=== PATIENT | female | born 1935 | race Caucasian/White ===

== ENCOUNTER 2016-08-11 15:43 | Inpatient (IN) | payer MEDICARE ==
[~2016-08-11] VITALS: Ht 157.5 cm; Wt 83.4 kg
[2016-08-11] VITALS (7 sets, daily range): BP systolic 117–133; BP diastolic 51–69
[~2016-08-11 15:43] MED LIST: ALBU25PO2 INH; ALBU8.5H3 INH; AMLO10TA2 PO; AMLO5TAB2 PO; ATEN25TA PO; ATOR10TA PO; BETA1TAB10 PO; BUDE10.22 INH; CLON-364 PO; ENOX40SY4 SQ; LEVO125T PO; LEVO500T33 PO; LOSA1TAB18 PO; LOSA25TA5 PO; MAGN400O4 PO; METF500T4 PO; METH750T87 PO; NAPR220T77 PO; OXYC-302 PO; PRAV40TA2 PO; SULF1TAB24 PO; TIOT18CA INH
[2016-08-11] MEDS ORDERED: SODIUM CHLORIDE FLUSH 10ML SYR IVF ONE (16:30)
[2016-08-11] MEDS ORDERED: SODIUM CHLORIDE 0.9% 1,000ML IVBOLUS ONE (16:30)
[2016-08-11] MEDS ORDERED: SULF1TAB24 PO (16:39)
[2016-08-11] MEDS ORDERED: ACET500T76 PO (16:40)
[2016-08-11] MEDS ORDERED: methylPREDNISolone SOD SUCC 125 MG/2 ML ONE (16:47)
[2016-08-11 16:49] LABS: ASPARTATE AMINO TRANSFERASE 14 U/L (15-37); BLOOD UREA NITROGEN 25 mg/dL (7-18)
[2016-08-11 16:54] LABS: IS PT STATUS REG ER OR PRE ER? YES
[2016-08-11] MEDS ORDERED: methylPREDNISolone SOD SUCC 125 MG/2 ML IVP ONE (17:00)
[2016-08-11] MEDS ORDERED: ALBUTEROL/IPRATROPIUM 2.5MG/0.5MG, 3 ML NPPB ONE (17:00)
[2016-08-11 17:15] LABS: ANISOCYTOSIS 1+
[2016-08-11 17:16] LABS: OVALOCYTES 1+; POLYCHROMASIA 1+
[2016-08-11 17:18] LABS: LARGE PLATELETS 1+
[2016-08-11] MEDS ORDERED: ALBUTEROL/IPRATROPIUM 2.5MG/0.5MG, 3 ML ONE (17:22)
[2016-08-11] MEDS ORDERED: SODIUM CHLORIDE FLUSH 10ML SYR IVF PRN (19:00)
[2016-08-11] MEDS ORDERED: TEMAZEPAM 15 MG CAPSULE PO PRN (19:30)
[2016-08-11] MEDS ORDERED: OXYcodone IR 5MG TABLET PO PRN (19:30)
[2016-08-11] MEDS ORDERED: FUROSEMIDE 20 MG/2 ML IV ONE (19:30)
[2016-08-11] MEDS ORDERED: GUAIFENESIN/DM 200-20MG, 10ML UDC PO PRN (19:30)
[2016-08-11] MEDS ORDERED: ENALAPRILAT 1.25 MG/ML, 2ML IVPush PRN (19:30)
[2016-08-11] MEDS ORDERED: ONDANSETRON 2MG/ML, 2ML IVPush PRN (19:30)
[2016-08-11] MEDS ORDERED: POLYETHYLENE GLYCOL 17 GM PACKET PO PRN (19:30)
[2016-08-11] MEDS ORDERED: ENOXAPARIN 40 MG/0.4 ML SQ SCH (19:30)
[2016-08-11] MEDS ORDERED: ENOXAPARIN 40 MG/0.4 ML ONE (19:33)
[2016-08-11] MEDS ORDERED: FUROSEMIDE 20 MG/2 ML ONE (19:33)
[2016-08-11] MEDS ORDERED: ATORVASTATIN 10 MG TABLET PO SCH (21:00)
[2016-08-11] MEDS ORDERED: LIPITOR MC SCH (22:30)
[2016-08-11] MEDS: ACETAMINOPHEN 325 MG TABLET PO PRN (22:52)
[2016-08-11] MEDS: SODIUM CHLORIDE FLUSH 3ML SYRINGE IVF SCH (23:07)
[2016-08-11] MEDS: TEMPLATE NON-FORMULARY MED. (Albuterol Sulfate (Proair Hfa) 2 PUFF) INH SCH (23:07)
[2016-08-12 00:53] VITALS: BP 117/58
[2016-08-12 01:53] VITALS: BP 112/58
[2016-08-12 01:59] VITALS: BP 112/58
[2016-08-12 05:00] LABS: PATH.CAST-FLAG NOT PRESENT; SPERM-FLAG NOT PRESENT; SRC-FLAG NOT PRESENT; XTAL-FLAG NOT PRESENT; YLC-FLAG NOT PRESENT
[2016-08-12 05:37] LABS: BLOOD UREA NITROGEN 26 mg/dL (7-18)
[2016-08-12 05:42] LABS: ASPARTATE AMINO TRANSFERASE 20 U/L (15-37)
[2016-08-12] MEDS: ALBUTEROL/IPRATROPIUM 2.5MG/0.5MG, 3 ML NPPB SCH ×4 (07:00→20:00)
[2016-08-12 08:00] VITALS: BP 118/54
[2016-08-12] MEDS: SULFAMETH./TRIMETHOPRIM DS 800MG/160MG TABLET PO SCH (08:56)
[2016-08-12] MEDS: ATENOLOL 25 MG TABLET PO SCH (08:56)
[2016-08-12] MEDS: HYDROCHLOROTHIAZIDE 12.5 MG CAPSULE PO SCH (08:56)
[2016-08-12] MEDS: LEVOTHYROXINE 125 MCG TABLET PO SCH (08:56)
[2016-08-12] MEDS: LOSARTAN 50MG TABLET PO SCH (08:57)
[2016-08-12] MEDS: SODIUM CHLORIDE FLUSH 3ML SYRINGE IVF SCH ×2 (08:57→21:00)
[2016-08-12] MEDS: SENNA/DOCUSATE TABLET PO SCH (08:59)
[2016-08-12] MEDS ORDERED: metFORMIN 500 MG TABLET PO SCH (09:00)
[2016-08-12] MEDS ORDERED: AMLODIPINE 5 MG TABLET PO SCH (09:00)
[2016-08-12] MEDS ORDERED: IPRATROPIUM 0.5 MG/2.5 ML INHA HHN SCH (09:00)
[2016-08-12 12:00] VITALS: BP 119/56
[2016-08-12] MEDS ORDERED: ALBUTEROL/IPRATROPIUM 2.5MG/0.5MG, 3 ML ONE (14:32)
[2016-08-12] MEDS: FUROSEMIDE 20 MG/2 ML IV SCH (17:52)
[2016-08-12] MEDS: TEMPLATE NON-FORMULARY MED. (Albuterol Sulfate (Proair Hfa) 2 PUFF) INH SCH (19:30)
[2016-08-12] MEDS: ENOXAPARIN 30 MG/0.3 ML SQ SCH (20:00)
[2016-08-12] MEDS ORDERED: ENOXAPARIN 30 MG/0.3 ML SQ SCH (20:00)
[2016-08-12] MEDS: ATORVASTATIN 20 MG TABLET PO SCH (21:34)
[2016-08-12] MEDS: ACETAMINOPHEN 325 MG TABLET PO PRN (21:37)
[2016-08-12 21:40] VITALS: BP 115/61
[2016-08-12 23:05] LABS: OCCBLD OBC PASS
[2016-08-13 00:30] VITALS: BP 110/65
[2016-08-13 04:10] VITALS: BP 121/68
[2016-08-13] MEDS: ACETAMINOPHEN 325 MG TABLET PO PRN ×4 (04:11→20:29)
[2016-08-13] MEDS: LEVOTHYROXINE 125 MCG TABLET PO SCH (05:09)
[2016-08-13 05:17] LABS: BLOOD UREA NITROGEN 35 mg/dL (7-18)
[2016-08-13 07:50] VITALS: BP 118/71
[2016-08-13] MEDS: ALBUTEROL/IPRATROPIUM 2.5MG/0.5MG, 3 ML NPPB SCH ×4 (08:00→19:25)
[2016-08-13] MEDS: SENNA/DOCUSATE TABLET PO SCH (09:00)
[2016-08-13] MEDS: SODIUM CHLORIDE FLUSH 3ML SYRINGE IVF SCH ×2 (09:00→20:23)
[2016-08-13] MEDS: POTASSIUM CHLORIDE 20 MEQ TAB.ER.PRT PO SCH (09:22)
[2016-08-13] MEDS: FUROSEMIDE 20 MG/2 ML IV SCH ×2 (09:22→20:22)
[2016-08-13] MEDS: LOSARTAN 50MG TABLET PO SCH (09:23)
[2016-08-13] MEDS: SULFAMETH./TRIMETHOPRIM DS 800MG/160MG TABLET PO SCH (09:23)
[2016-08-13] MEDS: HYDROCHLOROTHIAZIDE 12.5 MG CAPSULE PO SCH (09:23)
[2016-08-13] MEDS: ATENOLOL 25 MG TABLET PO SCH (09:24)
[2016-08-13 13:53] VITALS: BP 128/73
[2016-08-13] MEDS: TEMPLATE NON-FORMULARY MED. (Albuterol Sulfate (Proair Hfa) 2 PUFF) INH SCH (19:30)
[2016-08-13 19:41] VITALS: BP 112/62
[2016-08-13] MEDS: ATORVASTATIN 20 MG TABLET PO SCH (20:23)
[2016-08-13] MEDS: ENOXAPARIN 30 MG/0.3 ML SQ SCH (20:27)
[2016-08-13 23:47] VITALS: BP 118/66
[2016-08-14 00:46] VITALS: BP 118/60
[2016-08-14 04:22] VITALS: BP 111/58
[2016-08-14] MEDS: LEVOTHYROXINE 125 MCG TABLET PO SCH (05:22)
[2016-08-14 07:34] VITALS: BP 117/71
[2016-08-14] MEDS: FUROSEMIDE 20 MG/2 ML IV SCH (08:52)
[2016-08-14] MEDS: POTASSIUM CHLORIDE 20 MEQ TAB.ER.PRT PO SCH (08:53)
[2016-08-14] MEDS: SODIUM CHLORIDE FLUSH 3ML SYRINGE IVF SCH (08:53)
[2016-08-14] MEDS: SULFAMETH./TRIMETHOPRIM DS 800MG/160MG TABLET PO SCH (08:54)
[2016-08-14] MEDS: SENNA/DOCUSATE TABLET PO SCH (08:54)
[2016-08-14] MEDS: LOSARTAN 50MG TABLET PO SCH (08:55)
[2016-08-14] MEDS: HYDROCHLOROTHIAZIDE 12.5 MG CAPSULE PO SCH (08:56)
[2016-08-14] MEDS: ATENOLOL 25 MG TABLET PO SCH (08:56)
[2016-08-14] MEDS ORDERED: CIPR500T87 PO (09:27)
[2016-08-14] MEDS ORDERED: LACT1CAP24 PO (09:27)
[2016-08-14] MEDS ORDERED: POTA20PA PO (09:45)
[2016-08-14] MEDS ORDERED: FURO40TA6 PO (09:45)
[2016-08-14] MEDS ORDERED: FERR325T20 PO (09:45)
[2016-08-14] MEDS ORDERED: FERROUS SULFATE 325 MG TABLET PO SCH (10:00)
[2016-08-14] MEDS: ALBUTEROL/IPRATROPIUM 2.5MG/0.5MG, 3 ML NPPB SCH ×2 (10:20→14:50)
[2016-08-14 12:39] VITALS: BP 117/66
== END 2016-08-14 14:40 | disposition home or self-care (01) | DRG 291 ==
LOC: ED 18:30 → EDIP 18:39 → 4EST 21:46
PROVIDERS: ADMIT Internal Medicine; ATTEND Internal Medicine
PROC: 30233N1 Transfusion of Nonautologous Red Blood Cells into Peripheral Vein, Percutaneous Approach (ICD-10-PCS; principal; 2016-08-11)
DX: I13.0 Hypertensive heart and chronic kidney disease with heart failure and stage 1 through stage 4 chronic kidney disease, or unspecified chronic kidney disease (principal); I26.09 Other pulmonary embolism with acute cor pulmonale; J96.20 Acute and chronic respiratory failure, unspecified whether with hypoxia or hypercapnia; I50.31 Acute diastolic (congestive) heart failure; J44.1 Chronic obstructive pulmonary disease with (acute) exacerbation; N17.9 Acute kidney failure, unspecified; D50.9 Iron deficiency anemia, unspecified; E03.9 Hypothyroidism, unspecified; D63.1 Anemia in chronic kidney disease; E11.22 Type 2 diabetes mellitus with diabetic chronic kidney disease; E78.00 Pure hypercholesterolemia, unspecified; M54.9 Dorsalgia, unspecified; I08.3 Combined rheumatic disorders of mitral, aortic and tricuspid valves; G89.29 Other chronic pain; I27.2 Other secondary pulmonary hypertension; N18.3 Chronic kidney disease, stage 3 (moderate); Z82.49 Family history of ischemic heart disease and other diseases of the circulatory system; Z83.3 Family history of diabetes mellitus; Z87.81 Personal history of (healed) traumatic fracture; Z99.81 Dependence on supplemental oxygen; Z90.710 Acquired absence of both cervix and uterus; Z79.899 Other long term (current) drug therapy
CPT/HCPCS: 36415; 71010; 78582; 80048; 80053; 81001; 82272; 82607; 82728; 82746; 83540; 83550; 83880; 84443; 84484; 85025; 85379; 85610; 86850; 86900; 86923; 87077; 87086; 87186; 93005; 93306; 93970; 94640; 96361; 96372; 96374; 96375; J1650; J7620; A9540; A9558; C9898; J1940; J2930; J7030; J7512; P9016

== ENCOUNTER → 2016-10-24 | Outpatient (CLI) | payer MEDICARE ==
[~2016-10-24] MED LIST changes: +ACET500T71 PO; +CIPR500T87 PO; +FERR325T20 PO; +FURO40TA6 PO; +LACT1CAP24 PO; +POTA20PA PO; +REGADENOSON 0.4 MG/5 ML SYRINGE ONE
== END | disposition home or self-care (01) ==
LOC: CVU 07:02
PROVIDERS: ATTEND Internal Medicine Cardiovascular Disease
DX: I65.23 Occlusion and stenosis of bilateral carotid arteries (principal); I10 Essential (primary) hypertension; E11.9 Type 2 diabetes mellitus without complications
CPT/HCPCS: 78452; 93017; 93880; A9502; J2785

== ENCOUNTER 2017-07-09 11:24 | Inpatient (IN) | payer MEDICARE ==
[~2017-07-09] VITALS: Ht 157.5 cm; Wt 82.9 kg
[~2017-07-09 11:24] MED LIST changes: -ALBU8.5H3 INH; +ALBU8.5H8 INH; +FERR325T18 PO; -FERR325T20 PO; -LEVO500T33 PO; +LEVO500T47 PO; -LOSA1TAB18 PO; +LOSA1TAB25 PO; -MAGN400O4 PO; +MAGN400O7 PO; -REGADENOSON 0.4 MG/5 ML SYRINGE ONE
[2017-07-09] MEDS ORDERED: ASPIRIN 81 MG TABLET CHEW PO ONE (12:00)
[2017-07-09] MEDS ORDERED: ASPIRIN 81 MG TABLET CHEW ONE (12:15)
[2017-07-09 12:29] LABS: BASOPHILS # (AUTO) 0.02 x10^3/uL (0-0.1); BASOPHILS % (AUTO) 0 % (0-1); EOSINOPHILS % (AUTO) 1 % (1-7); LYMPHOCYTES # (AUTO) 1.27 x10^3/uL (1-3.4); LYMPHOCYTES % (AUTO) 14 % (22-44); MD NO; MEAN CORPUSCULAR HEMOGLOBIN 28.2 pg (27.0-34.8); MEAN CORPUSCULAR HGB CONC 32.1 g/dL (32.4-35.8); MEAN PLATELET VOLUME 7.1 fL (7.4-10.4); MONOCYTES # (AUTO) 0.48 x10^3/uL (0.2-0.8); MONOCYTES % (AUTO) 5 % (2-9); NEUTROPHILS # (AUTO) 7.18 x10^3/uL (1.8-6.8); NEUTROPHILS % (AUTO) 79 % (42-75); PLATELET COUNT 231 x10^3/uL (130-400); RED BLOOD COUNT 4.25 x10^6/uL (3.82-5.3); RED CELL DISTRIBUTION WIDTH 14.9 % (9.6-15.2)
[2017-07-09 12:42] LABS: CHLORIDE 107 mmol/L (98-107)
[2017-07-09 12:46] LABS: PROTHROMBIN TIME 10.3 Seconds (9.6-11.5)
[2017-07-09 12:53] LABS: ALANINE AMINOTRANSFERASE 43 U/L (12-78); ALKALINE PHOSPHATASE 108 U/L (45-117); ANION GAP 8 mmol/L (5-15); BILIRUBIN,TOTAL 0.7 mg/dL (0.2-1.0); CALCIUM 8.7 mg/dL (8.5-10.1); CREATININE 1.29 mg/dL (0.55-1.02); TOTAL PROTEIN 7.7 g/dL (6.4-8.2); TROPONIN I < 0.015 ng/mL (0.000-0.045)
[2017-07-09] MEDS ORDERED: HYDROcodone/APAP 5/325 TABLET PO PRN (14:30)
[2017-07-09] MEDS ORDERED: ONDANSETRON 2MG/ML, 2ML IVPush PRN (14:30)
[2017-07-09] MEDS ORDERED: TEMAZEPAM 15 MG CAPSULE PO PRN (14:30)
[2017-07-09] MEDS ORDERED: morphine SULFATE 10 MG/ML, 1ML IVPush PRN (14:30)
[2017-07-09] MEDS ORDERED: hydrALAzine 20 MG/ML, 1ML IVPush PRN (14:30)
[2017-07-09 15:03] LABS: FREE T4 (FREE THYROXINE) 1.45 ng/dL (0.76-1.46); THYROID STIMULATING HORMONE 1.64 mIU/L (0.358-3.740)
[2017-07-09] MEDS ORDERED: ONDANSETRON ODT 4 MG PO PRN (15:30)
[2017-07-09 15:59] VITALS: BP 112/65
[2017-07-09] MEDS: LACTOBACILLUS CHEW TABLET PO SCH ×2 (16:00→20:29)
[2017-07-09] MEDS: IPRATROPIUM 0.5 MG/2.5 ML INHA NPPB SCH ×2 (16:00→20:40)
[2017-07-09] MEDS ORDERED: GABA-826 PO (16:04)
[2017-07-09] MEDS ORDERED: OMEG1CAP23 PO (16:04)
[2017-07-09] MEDS ORDERED: CEPH-367 PO (16:04)
[2017-07-09] MEDS ORDERED: ALBUTEROL SULFATE 2.5 MG/3 ML NPPB PRN (16:30)
[2017-07-09 17:28] LABS: HEMOGLOBIN A1C 6.3 % (4.2-6.3)
[2017-07-09] MEDS ORDERED: TRAZODONE 50MG TABLET PO PRN (18:00)
[2017-07-09 19:49] LABS: MICROSCOPIC INDICATED
[2017-07-09 20:03] LABS: CULTURE INDICATED? YES
[2017-07-09] MEDS: ACETAMINOPHEN 325 MG TABLET PO PRN (20:31)
[2017-07-09 20:34] LABS: TROPONIN I < 0.015 ng/mL (0.000-0.045)
[2017-07-09] MEDS ORDERED: APIXABAN 2.5 MG TABLET PO SCH (21:00)
[2017-07-09] MEDS ORDERED: ATORVASTATIN 20 MG TABLET PO SCH (21:00)
[2017-07-09 21:08] VITALS: BP 130/74
[2017-07-10 03:59] VITALS: BP 108/74
[2017-07-10] MEDS: ACETAMINOPHEN 325 MG TABLET PO PRN ×2 (04:18→10:24)
[2017-07-10 04:44] LABS: ALBUMIN 3.2 g/dL (3.4-5.0); ANION GAP 6 mmol/L (5-15); CALCIUM 8.3 mg/dL (8.5-10.1); CHLORIDE 109 mmol/L (98-107)
[2017-07-10 04:49] LABS: ALANINE AMINOTRANSFERASE 30 U/L (12-78); ALKALINE PHOSPHATASE 87 U/L (45-117); BILIRUBIN,TOTAL 0.8 mg/dL (0.2-1.0); CREATININE 1.14 mg/dL (0.55-1.02); TOTAL PROTEIN 6.3 g/dL (6.4-8.2); TROPONIN I < 0.015 ng/mL (0.000-0.045)
[2017-07-10] MEDS ORDERED: LEVOTHYROXINE 125 MCG TABLET PO SCH (06:00)
[2017-07-10] MEDS ORDERED: IPRATROPIUM 0.5 MG/2.5 ML INHA NPPB SCH ×2 (07:00→21:00)
[2017-07-10 07:35] VITALS: BP 106/68
[2017-07-10] MEDS ORDERED: FUROSEMIDE 40 MG TABLET PO SCH (09:00)
[2017-07-10] MEDS ORDERED: [UNRECOGNIZED DRUG - OTHER] PO SCH (09:00)
[2017-07-10] MEDS ORDERED: ATENOLOL 25 MG TABLET PO SCH (09:00)
[2017-07-10] MEDS ORDERED: APIXABAN 5 MG TABLET PO SCH (09:00)
[2017-07-10] MEDS ORDERED: CEPHALEXIN 250 MG CAPSULE PO SCH (09:00)
[2017-07-10] MEDS ORDERED: AMLODIPINE 5 MG TABLET PO SCH (09:00)
[2017-07-10] MEDS ORDERED: POTASSIUM CHLORIDE 20 MEQ TAB.ER.PRT PO SCH (09:00)
[2017-07-10] MEDS ORDERED: CIPROFLOXACIN 500 MG TABLET PO SCH (09:00)
[2017-07-10] MEDS: LACTOBACILLUS CHEW TABLET PO SCH (10:24)
[2017-07-10] MEDS ORDERED: APIX5TAB PO (14:53)
== END 2017-07-10 17:36 | disposition home or self-care (01) | DRG 311 ==
LOC: ED 13:13 → EDIP 13:14 → ED 13:34 → SUATTDRO 13:41 → 5SO 15:48
PROVIDERS: ADMIT Hospitalist; ATTEND Internal Medicine
DX: I20.9 Angina pectoris, unspecified (principal); J96.10 Chronic respiratory failure, unspecified whether with hypoxia or hypercapnia; D68.69 Other thrombophilia; E11.22 Type 2 diabetes mellitus with diabetic chronic kidney disease; I13.0 Hypertensive heart and chronic kidney disease with heart failure and stage 1 through stage 4 chronic kidney disease, or unspecified chronic kidney disease; I27.29 Other secondary pulmonary hypertension; N18.3 Chronic kidney disease, stage 3 (moderate); I50.30 Unspecified diastolic (congestive) heart failure; I48.91 Unspecified atrial fibrillation; I27.81 Cor pulmonale (chronic); J44.9 Chronic obstructive pulmonary disease, unspecified; G89.29 Other chronic pain; M54.9 Dorsalgia, unspecified; E03.9 Hypothyroidism, unspecified; E78.00 Pure hypercholesterolemia, unspecified; G47.33 Obstructive sleep apnea (adult) (pediatric); E78.5 Hyperlipidemia, unspecified; I34.0 Nonrheumatic mitral (valve) insufficiency; Z99.81 Dependence on supplemental oxygen; Z90.710 Acquired absence of both cervix and uterus; Z79.899 Other long term (current) drug therapy; Z79.82 Long term (current) use of aspirin; Z87.891 Personal history of nicotine dependence
CPT/HCPCS: 36415; 71045; 78582; 80053; 81001; 83036; 83880; 84439; 84443; 84484; 85025; 85610; 87086; 93005; 93306; 94640; 99285; J7644; A9540; A9558; C9898

== ENCOUNTER → 2017-10-03 | Outpatient (CLI) | payer MEDICARE ==
[~2017-10-03] MED LIST changes: +APIX5TAB PO; +CEPH-367 PO; +GABA-826 PO; -METF500T4 PO; +METF500T5 PO; +OMEG1CAP23 PO
== END | disposition home or self-care (01) ==
LOC: CVU 15:39
PROVIDERS: ATTEND Internal Medicine Cardiovascular Disease
DX: I65.23 Occlusion and stenosis of bilateral carotid arteries (principal); I12.9 Hypertensive chronic kidney disease with stage 1 through stage 4 chronic kidney disease, or unspecified chronic kidney disease; I50.30 Unspecified diastolic (congestive) heart failure; N18.3 Chronic kidney disease, stage 3 (moderate); E11.9 Type 2 diabetes mellitus without complications; E03.9 Hypothyroidism, unspecified
CPT/HCPCS: 93880

== ENCOUNTER → 2018-05-06 | Outpatient (CLI) | payer MEDICARE ==
[~2018-05-06] MED LIST changes: +AMLO-150 PO; -AMLO10TA2 PO; +AMLO10TA8 PO; -AMLO5TAB2 PO; -CLON-364 PO; +CLON0.5T11 PO; +LOSA25TA25 PO; -LOSA25TA5 PO; +METF500T17 PO; -METF500T5 PO; -POTA20PA PO; +POTA20PA31 PO; +REGADENOSON 0.4 MG/5 ML SYRINGE ONE
== END | disposition home or self-care (01) ==
LOC: CFH 08:27
PROVIDERS: ATTEND Internal Medicine Cardiovascular Disease
DX: I48.91 Unspecified atrial fibrillation (principal); R06.02 Shortness of breath; E11.9 Type 2 diabetes mellitus without complications; Z82.49 Family history of ischemic heart disease and other diseases of the circulatory system
CPT/HCPCS: 78452; 93017; A9502; J2785

== ENCOUNTER 2018-08-11 20:25 | Inpatient (IN) | payer MEDICARE ==
[~2018-08-11] VITALS: Ht 160 cm; Wt 84.0 kg
[~2018-08-11 20:25] MED LIST changes: -REGADENOSON 0.4 MG/5 ML SYRINGE ONE
[2018-08-11] MEDS ORDERED: ALBUTEROL/IPRATROPIUM 2.5MG/0.5MG, 3 ML ONE (20:47)
--- NOTE | 2018-08-11 20:56 | NUR ---
Note undone in EDM - 08/11/18 at 2102 by MERVAT PT PRESENTS TO ED WITH C/O WORSENING SOB OVER LAST FEW DAYS. BECAME MORE CONCERNED AFTER FALLING ASLEEEP THIS AFTERNOON AND WAKING UP GASPIG FOR AIR. STATES ON LASIX AND HAS BEEN INSTRUCTED TO PAY ATTENTION TO A DAILY WEIGHT GAIN OF 3LBS. STATES WEIGHT HAS BEEN ALL OVER. STATES SOME POSTIONAL BREATING RECENTLY. 1+ NON PITTING PEDAL EDEMA NOTED. BREATHING SLIGHTLY LABORED WITH PURSED LIP BREATHING. SOME CYANOSIS AROUND HER LIPS NOTED. MILD AMOUNT OF DISTRESS NOTED. POC DISCUSSED. REPORT TO [facility].
[2018-08-11] MEDS ORDERED: ALBUTEROL/IPRATROPIUM 2.5MG/0.5MG, 3 ML NPPB ONE (21:00)
[2018-08-11 21:01] LABS: BASOPHILS # (AUTO) 0.01 x10^3/uL (0-0.1); BASOPHILS % (AUTO) 0 % (0-1); EOSINOPHILS # (AUTO) 0.12 x10^3/uL (0-0.4); EOSINOPHILS % (AUTO) 2 % (1-7); LYMPHOCYTES # (AUTO) 1.22 x10^3/uL (1-3.4); LYMPHOCYTES % (AUTO) 18 % (22-44); MD NO; MEAN CORPUSCULAR HEMOGLOBIN 27.6 pg (27.0-34.8); MEAN CORPUSCULAR HGB CONC 31.2 g/dL (32.4-35.8); MEAN CORPUSCULAR VOLUME 88.7 fL (80-100); MEAN PLATELET VOLUME 7.2 fL (7.4-10.4); MONOCYTES # (AUTO) 0.52 x10^3/uL (0.2-0.8); MONOCYTES % (AUTO) 8 % (2-9); NEUTROPHILS # (AUTO) 4.83 x10^3/uL (1.8-6.8); NEUTROPHILS % (AUTO) 72 % (42-75); PLATELET COUNT 201 x10^3/uL (130-400); RED BLOOD COUNT 4.14 x10^6/uL (3.82-5.3); RED CELL DISTRIBUTION WIDTH 18.5 % (9.6-15.2)
[2018-08-11 21:12] LABS: ALBUMIN 4.1 g/dL (3.4-5.0); ANION GAP 6 mmol/L (5-15); CHLORIDE 112 mmol/L (98-107); CREATININE 2.02 mg/dL (0.55-1.02)
[2018-08-11 21:16] LABS: TROPONIN I < 0.015 ng/mL (0.000-0.045)
[2018-08-11] MEDS ORDERED: FUROSEMIDE 40 MG/4 ML ONE (21:53)
[2018-08-11] MEDS ORDERED: ASPIRIN 325 MG TABLET PO ONE (22:00)
[2018-08-11] MEDS ORDERED: FUROSEMIDE 40 MG/4 ML IV ONE (22:00)
--- NOTE | 2018-08-11 22:28 | NUR ---
REPORT TO ANTELMO PT TO FLOOR WITH TECH
[2018-08-11 23:37] VITALS: BP 125/78
[2018-08-11 23:40] VITALS: BP 125/84
[2018-08-12 01:02] VITALS: BP 119/82
[2018-08-12] MEDS ORDERED: ALBUTEROL/IPRATROPIUM 2.5MG/0.5MG, 3 ML HHN PRN (02:00)
[2018-08-12 05:18] LABS: BASOPHILS % (AUTO) 0 % (0-1); EOSINOPHILS % (AUTO) 0 % (1-7); LYMPHOCYTES # (AUTO) 0.52 x10^3/uL (1-3.4); LYMPHOCYTES % (AUTO) 9 % (22-44); MD NO; MEAN CORPUSCULAR HEMOGLOBIN 27.8 pg (27.0-34.8); MEAN CORPUSCULAR HGB CONC 31.4 g/dL (32.4-35.8); MEAN CORPUSCULAR VOLUME 88.7 fL (80-100); MEAN PLATELET VOLUME 7.3 fL (7.4-10.4); MONOCYTES # (AUTO) 0.04 x10^3/uL (0.2-0.8); MONOCYTES % (AUTO) 1 % (2-9); NEUTROPHILS # (AUTO) 5.08 x10^3/uL (1.8-6.8); NEUTROPHILS % (AUTO) 90 % (42-75); PLATELET COUNT 177 x10^3/uL (130-400); RED CELL DISTRIBUTION WIDTH 18.2 % (9.6-15.2)
[2018-08-12 05:32] LABS: ANION GAP 7 mmol/L (5-15); CHLORIDE 109 mmol/L (98-107); CREATININE 1.44 mg/dL (0.55-1.02)
[2018-08-12] MEDS: LEVOTHYROXINE 125 MCG TABLET PO SCH (05:36)
[2018-08-12 06:03] LABS: HEMOGLOBIN A1C 6.1 % (4.2-6.3)
[2018-08-12] MEDS: INSULIN LISPRO 100 UNITS/ML, PEN SQ-INSULIN SCH ×4 (07:00→21:30)
[2018-08-12 07:30] VITALS: BP 111/72
[2018-08-12] MEDS ORDERED: GABA300C10 PO (08:50)
[2018-08-12] MEDS ORDERED: GABAPENTIN 300 MG CAPSULE PO SCH (09:00)
[2018-08-12] MEDS: FUROSEMIDE 40 MG TABLET PO SCH ×2 (09:02→20:59)
[2018-08-12] MEDS: AMLODIPINE 10 MG TAB PO SCH (09:02)
[2018-08-12] MEDS: POTASSIUM CHLORIDE 20 MEQ PACKET PO SCH (09:03)
[2018-08-12] MEDS: ATENOLOL 25 MG TABLET PO SCH (09:03)
[2018-08-12] MEDS: APIXABAN 5 MG TABLET PO SCH ×2 (09:03→20:59)
[2018-08-12 14:25] VITALS: BP 107/69
[2018-08-12] MEDS: GABAPENTIN 300 MG CAPSULE PO SCH ×2 (15:24→20:59)
[2018-08-12] MEDS: ACETAMINOPHEN 325 MG TABLET PO PRN ×2 (15:57→22:21)
[2018-08-12 19:15] VITALS: BP 98/61
[2018-08-12] MEDS ORDERED: ATORVASTATIN 10 MG TABLET PO SCH (21:00)
[2018-08-12] MEDS ORDERED: GABAPENTIN 100 MG CAPSULE PO SCH (21:00)
[2018-08-13 00:38] VITALS: BP 109/68
[2018-08-13 05:31] LABS: BASOPHILS # (AUTO) 0.02 x10^3/uL (0-0.1); BASOPHILS % (AUTO) 0 % (0-1); EOSINOPHILS # (AUTO) 0.03 x10^3/uL (0-0.4); EOSINOPHILS % (AUTO) 0 % (1-7); LYMPHOCYTES # (AUTO) 1.33 x10^3/uL (1-3.4); LYMPHOCYTES % (AUTO) 15 % (22-44); MD NO; MEAN CORPUSCULAR HEMOGLOBIN 27.8 pg (27.0-34.8); MEAN CORPUSCULAR HGB CONC 31.4 g/dL (32.4-35.8); MEAN CORPUSCULAR VOLUME 88.5 fL (80-100); MEAN PLATELET VOLUME 7.6 fL (7.4-10.4); MONOCYTES # (AUTO) 0.69 x10^3/uL (0.2-0.8); MONOCYTES % (AUTO) 8 % (2-9); NEUTROPHILS # (AUTO) 6.68 x10^3/uL (1.8-6.8); NEUTROPHILS % (AUTO) 76 % (42-75); PLATELET COUNT 176 x10^3/uL (130-400); RED BLOOD COUNT 3.82 x10^6/uL (3.82-5.3); RED CELL DISTRIBUTION WIDTH 18.1 % (9.6-15.2)
[2018-08-13 05:40] LABS: ANION GAP 5 mmol/L (5-15); CALCIUM 8.7 mg/dL (8.5-10.1); CHLORIDE 107 mmol/L (98-107)
[2018-08-13 05:41] LABS: CREATININE 1.29 mg/dL (0.55-1.02)
[2018-08-13] MEDS: LEVOTHYROXINE 125 MCG TABLET PO SCH (06:29)
[2018-08-13] MEDS: INSULIN LISPRO 100 UNITS/ML, PEN SQ-INSULIN SCH ×2 (07:00→12:00)
[2018-08-13 07:30] VITALS: BP 101/68
[2018-08-13] MEDS: AMLODIPINE 10 MG TAB PO SCH (09:51)
[2018-08-13] MEDS: FUROSEMIDE 40 MG TABLET PO SCH (09:52)
[2018-08-13] MEDS: ATENOLOL 25 MG TABLET PO SCH (09:52)
[2018-08-13] MEDS: APIXABAN 5 MG TABLET PO SCH (09:52)
[2018-08-13] MEDS: POTASSIUM CHLORIDE 20 MEQ PACKET PO SCH (09:52)
[2018-08-13] MEDS: GABAPENTIN 300 MG CAPSULE PO SCH (09:52)
[2018-08-13] MEDS: ACETAMINOPHEN 325 MG TABLET PO PRN (10:04)
[2018-08-13 13:20] VITALS: BP 98/68
[2018-08-13] MEDS ORDERED: PRED20TA PO (13:56)
[2018-08-13] MEDS ORDERED: FURO20TA3 PO (13:56)
== END 2018-08-13 15:35 | disposition home or self-care (01) | DRG 682 ==
LOC: ED 21:31 → EDIP 21:53 → 5SO 22:50 → DCLOUNGE 08-13 15:25
PROVIDERS: ADMIT Internal Medicine; ATTEND Internal Medicine
DX: N17.9 Acute kidney failure, unspecified (principal); I50.33 Acute on chronic diastolic (congestive) heart failure; I13.0 Hypertensive heart and chronic kidney disease with heart failure and stage 1 through stage 4 chronic kidney disease, or unspecified chronic kidney disease; J44.1 Chronic obstructive pulmonary disease with (acute) exacerbation; D68.69 Other thrombophilia; J96.10 Chronic respiratory failure, unspecified whether with hypoxia or hypercapnia; D64.9 Anemia, unspecified; E03.9 Hypothyroidism, unspecified; E11.22 Type 2 diabetes mellitus with diabetic chronic kidney disease; E78.00 Pure hypercholesterolemia, unspecified; I48.91 Unspecified atrial fibrillation; E78.5 Hyperlipidemia, unspecified; Z60.2 Problems related to living alone; G47.30 Sleep apnea, unspecified; I08.1 Rheumatic disorders of both mitral and tricuspid valves; I27.20 Pulmonary hypertension, unspecified; N18.9 Chronic kidney disease, unspecified; Z79.01 Long term (current) use of anticoagulants; Z80.7 Family history of other malignant neoplasms of lymphoid, hematopoietic and related tissues; Z87.891 Personal history of nicotine dependence; Z80.8 Family history of malignant neoplasm of other organs or systems; Z90.710 Acquired absence of both cervix and uterus; Z99.81 Dependence on supplemental oxygen; Z79.84 Long term (current) use of oral hypoglycemic drugs
CPT/HCPCS: 36415; 71045; 80048; 82040; 82962; 83036; 83880; 84484; 85025; 93005; G0378; J1940; J1815; J7512

== ENCOUNTER 2018-10-10 08:16 | Outpatient (CLI) | payer MEDICARE | END 2018-10-10 23:59 | disposition home or self-care (01) | LOC: WOUND 08:16 | PROVIDERS: ATTEND Family Medicine | DX: E11.622 Type 2 diabetes mellitus with other skin ulcer (principal); L97.812 Non-pressure chronic ulcer of other part of right lower leg with fat layer exposed; E11.22 Type 2 diabetes mellitus with diabetic chronic kidney disease; I12.9 Hypertensive chronic kidney disease with stage 1 through stage 4 chronic kidney disease, or unspecified chronic kidney disease; N18.3 Chronic kidney disease, stage 3 (moderate); E03.9 Hypothyroidism, unspecified; J44.9 Chronic obstructive pulmonary disease, unspecified; E78.5 Hyperlipidemia, unspecified; Z90.710 Acquired absence of both cervix and uterus; Z87.891 Personal history of nicotine dependence | CPT/HCPCS: 11042; G0463 ==

== ENCOUNTER 2018-10-17 08:45 | Outpatient (CLI) | payer MEDICARE ==
[~2018-10-17 08:45] MED LIST changes: +FURO20TA3 PO; +GABA300C10 PO; +PRED20TA PO
[2018-11-23] MEDS ORDERED: INHALER INH (12:58)
[2018-11-23] MEDS ORDERED: PREG75CA PO (12:59)
[2018-11-23] MEDS ORDERED: GLIM2TAB2 PO (13:00)
[2018-11-27] MEDS ORDERED: DILT120C88 PO (09:42)
[2018-11-27] MEDS ORDERED: PRED5TAB PO (09:42)
[2018-11-27] MEDS ORDERED: DOXY100T10 PO (09:42)
[2018-11-27] MEDS ORDERED: BREO ELLIPTA MC (09:42)
== END 2018-10-17 23:59 | disposition home or self-care (01) ==
LOC: WOUND 08:45
PROVIDERS: ATTEND Family Medicine
DX: E11.622 Type 2 diabetes mellitus with other skin ulcer (principal); L97.812 Non-pressure chronic ulcer of other part of right lower leg with fat layer exposed; E11.22 Type 2 diabetes mellitus with diabetic chronic kidney disease; I12.9 Hypertensive chronic kidney disease with stage 1 through stage 4 chronic kidney disease, or unspecified chronic kidney disease; N18.3 Chronic kidney disease, stage 3 (moderate); E03.9 Hypothyroidism, unspecified; J44.9 Chronic obstructive pulmonary disease, unspecified; E78.5 Hyperlipidemia, unspecified; E66.01 Morbid (severe) obesity due to excess calories; Z68.32 Body mass index [BMI] 32.0-32.9, adult; Z90.710 Acquired absence of both cervix and uterus; Z87.891 Personal history of nicotine dependence
CPT/HCPCS: 97597

== ENCOUNTER 2018-10-21 13:29 | Outpatient (CLI) | payer MEDICARE ==
[2018-11-23] MEDS ORDERED: INHALER INH (12:58)
[2018-11-23] MEDS ORDERED: PREG75CA PO (12:59)
[2018-11-23] MEDS ORDERED: GLIM2TAB2 PO (13:00)
[2018-11-27] MEDS ORDERED: BREO ELLIPTA MC (09:42)
[2018-11-27] MEDS ORDERED: DOXY100T10 PO (09:42)
[2018-11-27] MEDS ORDERED: PRED5TAB PO (09:42)
[2018-11-27] MEDS ORDERED: DILT120C88 PO (09:42)
== END 2018-10-21 23:59 | disposition home or self-care (01) ==
LOC: CVU 13:29
PROVIDERS: ATTEND Internal Medicine Cardiovascular Disease
DX: I08.3 Combined rheumatic disorders of mitral, aortic and tricuspid valves (principal); I65.23 Occlusion and stenosis of bilateral carotid arteries; I48.91 Unspecified atrial fibrillation; E11.9 Type 2 diabetes mellitus without complications; I77.89 Other specified disorders of arteries and arterioles
CPT/HCPCS: 93306; 93880

== ENCOUNTER 2018-10-24 10:55 | Outpatient (CLI) | payer MEDICARE | END 2018-10-24 23:59 | disposition home or self-care (01) | LOC: WOUND 10:55 | PROVIDERS: ATTEND Family Medicine | DX: E11.622 Type 2 diabetes mellitus with other skin ulcer (principal); L97.812 Non-pressure chronic ulcer of other part of right lower leg with fat layer exposed; I12.9 Hypertensive chronic kidney disease with stage 1 through stage 4 chronic kidney disease, or unspecified chronic kidney disease; E11.22 Type 2 diabetes mellitus with diabetic chronic kidney disease; N18.3 Chronic kidney disease, stage 3 (moderate); E03.9 Hypothyroidism, unspecified; J44.9 Chronic obstructive pulmonary disease, unspecified; E78.5 Hyperlipidemia, unspecified; E66.01 Morbid (severe) obesity due to excess calories; Z68.32 Body mass index [BMI] 32.0-32.9, adult; Z90.710 Acquired absence of both cervix and uterus; Z87.891 Personal history of nicotine dependence | CPT/HCPCS: 97597 ==

== ENCOUNTER 2018-10-31 09:25 | Outpatient (CLI) | payer MEDICARE | END 2018-10-31 23:59 | disposition home or self-care (01) | LOC: WOUND 09:25 | PROVIDERS: ATTEND Family Medicine | DX: E11.622 Type 2 diabetes mellitus with other skin ulcer (principal); L97.812 Non-pressure chronic ulcer of other part of right lower leg with fat layer exposed; S41.121A Laceration with foreign body of right upper arm, initial encounter; S81.811D Laceration without foreign body, right lower leg, subsequent encounter; I12.9 Hypertensive chronic kidney disease with stage 1 through stage 4 chronic kidney disease, or unspecified chronic kidney disease; E11.22 Type 2 diabetes mellitus with diabetic chronic kidney disease; N18.3 Chronic kidney disease, stage 3 (moderate); E03.9 Hypothyroidism, unspecified; J44.9 Chronic obstructive pulmonary disease, unspecified; E78.5 Hyperlipidemia, unspecified; E66.01 Morbid (severe) obesity due to excess calories; Z68.32 Body mass index [BMI] 32.0-32.9, adult; Z90.710 Acquired absence of both cervix and uterus; Z87.891 Personal history of nicotine dependence; X58.XXXA Exposure to other specified factors, initial encounter; X58.XXXD Exposure to other specified factors, subsequent encounter; Y93.89 Activity, other specified; Y92.89 Other specified places as the place of occurrence of the external cause; Y99.8 Other external cause status | CPT/HCPCS: G0463 ==